=== PATIENT | male | born 1970 | race Caucasian/White ===

== ENCOUNTER 2024-08-12 15:41 | Emergency (ER) | payer OTHER, SELFPAY ==
--- OUTSIDE RECORDS SUMMARY | 2023-12-03 04:38 | XMS_ITS ---
Author Organization [facility] liance Address [address] [place] [address] Care Team Providers Care Radiologic Technologist Mammogram Name Role Phone Dwayne Mcdonald Primary Care Provider Unavailab WilliamShannon Unavailable [phone] RalphTemitope becker Unavailable [phone] REASON FOR VISIT Post Discharge Medication Review Medications Medication SIG (Take, Route, Frequency, Duration) Notes Start Date End Date Status Nicotine Step 1 21 MG/24HR 1 patch to skin Transdermal Once a day Not-Takbeltran g Nicotine Polacrilex 2 MG 1 gum mucous me mbrane Mouth/Throat every 2 hrs as needed for smoking cessation Active Effexor XR 37.5 MG 1 capsule with food Orally Once a day 08/23/2021 Not-Taking Risperidone 4 MG 1 tablet Orally at b ed time Not-Taking traZODone HCl 50 MG 1.5 tablets HS Orall y Once a day 08/23/2021 Not-Taking Atorvastatin Calcium 40 MG 1 tablet Orally Once a day 08/24/2021 Active Melatonin 3 MG 2 tablet at bedtime as needed Orally at bed time 11/13/2022 Active metFORMIN HCl 1000 MG 1 tablet with a me al Orally twice a day Active Banophen 50 MG 1 capsule at bedtime as needed Orally Once a day Not-Taking Acetaminophen 325 MG 2 tablet as needed Orally every 4 hrs PRN 08/24/2021 Not-Takin g carBAMazepine 100 MG 4 tablets Orally ev aditya 12 hours 11/13/2021 Active QUEtiapine Fumarate 400 MG 2 tablets Orally at bed time Active Insulin Lispro 100 UNIT/ML as directed Subcutaneous 3-15 units under the skin 3 times a day with meals. Active clonazePAM 1 MG 1 tablet Orally 3 times a day as needed for anxiety for up to 7 days 12/04/2023 Active Flonase Allergy Relief 50 MCG/ACT 2 sprays in each nostril Nasally Once a day Active Protonix 40 MG 1 tablet 1/2 to 1 ho ur before morning meal Orally Once a day Active Zaleplon 10 MG 1 capsule at bedtime as needed Orally Once a day Active Floranex - 2 tablets Orally onc e a day Active Levothyroxine Sodium 50 MCG 1 tablet in the morning on an empty stomach Orally Once a day Active Insulin Lispro 100 UNIT/ML Inject 3-15 units Subcutaneous nightly Active Encounters Encounter Location Date Provider Diagnosis [address] [place] [address] 12/03/2023 Temitope Ralph Plan Of Treatment No Information Progress Notes * PAUL QUIROS FDOB:[birth year] (53 yo M)Acc No.[id number]:12/03/2023 Patient: PAUL CUI :1970 A ge:53 Y S ex:Male Address:[address] [place] [address], [address], [place] [address] Subjective: * Chief Complaints: * P ost Discharge Medication Review * HPI: M edication Review: Medication Review W hat service was performed? P ost-discharge medication review V isit/Encounter Type M ember/Caregiver not present, chart review only W as the medication list in eCW updated? Y es- new or changed medications added Utilized d/c summary * Medical History: * Surgical History: * Hospitalization/Major Diagno stic Procedure: * Medications: T akingZaleplon 10 MG Capsule 1 capsule at bedtime as needed Orally Once a day Protonix 40 MG Tablet Delayed Release 1 tablet 1/2 to 1 hour before morning meal Orally Once a day Levothyroxine Sodium 50 MCG Tablet 1 tablet in the morning on an empty stomach Orally Once a day Floranex - Tablet 2 tablets Orally once a day Insulin Lispro 100 UNIT/ML Solution Cartridge Inject 3-15 units Subcutaneous nightly Insulin Lispro 100 UNIT/ML Solution Cartridge as directed Subcutaneous 3-15 units under the skin 3 times a day with meals. Flonase Allergy Relief 50 MCG/ACT Suspension 2 sprays in each nostril Nasally Once a day clonazePAM 1 MG Tablet 1 tablet Orally 3 times a day as needed for anxiety for up to 7 days , stop date 12/04/2023arBAMazepine 100 MG Tablet Chewable 4 tablets Orally every 12 hours QUEtiapine Fumarate 400 MG Tablet 2 tablets Orally at bed time Atorvastatin Calcium 40 MG Tablet 1 tablet Orally Once a day metFORMIN HCl 1000 MG Tablet 1 tablet with a meal Orally twice a day Melatonin 3 MG Tablet 2 tablet at bedtime as needed Orally at bed time Nicotine Polacrilex 2 MG Gum 1 gum mucous membrane Mouth/Throat every 2 hrs as needed for smoking cessation Taking Zaleplon 10 MG Capsule 1 capsule at bedtime as needed Orally Once a day Taking Protonix 40 MG Tablet Delayed Release 1 tablet 1/2 to 1 hour before morning meal Orally Once a day Taking Levothyroxine Sodium 50 MCG Tablet 1 tablet in the morning on an empty stomach Orally Once a day Taking Floranex - Tablet 2 tablets Orally once a day Taking Insulin Lispro 100 UNIT/ML Solution Cartridge Inject 3-15 units Subcutaneous nightly Taking Insulin Lispro 100 UNIT/ML Solution Cartridge as directed Subcutaneous 3-15 units under the skin 3 times a day with meals. Taking Flonase Allergy Relief 50 MCG/ACT Suspension 2 sprays in each nostril Nasally Once a day Taking clonazePAM 1 MG Tablet 1 tablet Orally 3 times a day as needed for anxiety for up to 7 days , stop date 12/04/2023Taking carBAMazepine 100 MG Tablet Chewable 4 tablets Orally every 12 hours Taking QUEtiapine Fumarate 400 MG Tablet 2 tablets Orally at bed time Taking Atorvastatin Calcium 40 MG Tablet 1 tablet Orally Once a day Taking metFORMIN HCl 1000 MG Tablet 1 tablet with a meal Orally twice a day Taking Melatonin 3 MG Tablet 2 tablet at bedtime as needed Orally at bed time Taking Nicotine Polacrilex 2 MG Gum 1 gum mucous membrane Mouth/Throat every 2 hrs as needed for smoking cessation Not-TakingAcetaminophen 325 MG Tablet 2 tablet as needed Orally every 4 hrs PRN Banophen 50 MG Capsule 1 capsule at bedtime as needed Orally Once a day Risperidone 4 MG Tablet 1 tablet Orally at bed time Effexor XR 37.5 MG Capsule Extended Release 24 Hour 1 capsule with food Orally Once a day traZODone HCl 50 MG Tablet 1.5 tablets HS Orally Once a day Nicotine Step 1 21 MG/24HR Patch 24 Hour 1 patch to skin Transdermal Once a day Not-Taking Acetaminophen 325 MG Tablet 2 tablet as needed Orally every 4 hrs PRN Not-Taking Banophen 50 MG Capsule 1 capsule at bedtime as needed Orally Once a day Not-Taking Risperidone 4 MG Tablet 1 tablet Orally at bed time Not-Taking Effexor XR 37.5 MG Capsule Extended Release 24 Hour 1 capsule with food Orally Once a day Not-Taking traZODone HCl 50 MG Tablet 1.5 tablets HS Orally Once a day Not-Taking Nicotine Step 1 21 MG/24HR Patch 24 Hour 1 patch to skin Transdermal Once a day Objective: Assessment: Plan: * Treatment: * Procedure Codes: * true * Date: Generated for Evelia rainey/Gonzalo/Jonathan on: 0 08/12/2024 08:01 PM EDT History and Physical Notes * HPI (History of Present Illness) Category Sub-Category Detail Notes Category Not es Medication Review Medication Review What service was performed?: Post-discharge medication review Visit/Encounter Type: Member /Caregiver not present, chart review only Was the medication list in e CW updated?: Yes- new or changed medications added Utilized d/c summary
--- NOTE | ~2024-08-12 | XR_ITS ---
EXAMINATION: XR CHEST CLINICAL INFORMATION: chest pain COMPARISON: None available. TECHNIQUE: 2 views of the chest were obtained. FINDINGS: Heart size is within normal limits. Lungs are clear and well aerated. There is no pleural effusion. Osseous structures are unremarkable. XR/XR chest 2V IMPRESSION: No acute disease Electronically signed by: Avel Heaton MD 08/12/2024 05:07 PM EDT RP
--- NOTE | 2024-08-12 15:49 | ECG_ITS ---
Test Reason : cp Blood Pressure : */* mmHG Vent. Rate : 74 BPM Atrial Rate : 74 BPM P-R Int : 128 ms QRS Dur : 88 ms QT Int : 414 ms P-R-T Axes : 45 197 74 degrees QTcB Int : 459 ms Normal sinus rhythm Right ventricular hypertrophy Lateral infarct , age undetermined Abnormal ECG No previous ECGs available Referred By: Generic ED Physician Electronically Signed By: BELEM OVALLES
[2024-08-12 15:57] VITALS: BP 100/63; BP 110/75; PULSE 72; PULSE 80; RESP 18; TEMP 36.7; O2SAT 100; O2SAT 98; BMI 30.3
--- NOTE | 2024-08-12 15:59 | ED.GENADULT ---
HPI - General Adult General Chief complaint: General Medical Stated complaint: L shoulder pain radiating to chest,dizzy Time Seen by Provider: 08/12/24 15:59 Source: patient, EMS, RN notes reviewed and old records reviewed Mode of arrival: EMS Limitations: no limitations History of Present Illness ED Provider: Alla HPI narrative: Patient is a 53-year-old male with history of TBI, DM, hypothyroidism, HLD, dementia/cognitive impairment presenting to the emergency department from [facility] via EMS with complaint of left-sided chest and shoulder pain since this morning. Also complains of ongoing dizziness since his TBI. Denies shortness of breath or palpitations. Patient is poor historian due to TBI/dementia. MD complaint: chest pain Onset (ago): hour(s) Related Data Allergies Allergy/AdvReac Type Severity Reaction Status Date / Time No Known Drug Allergies Allergy Unknown Verified 08/12/24 15:59 Review of Systems Review of Systems: As per HPI Yes all other systems are reviewed and are negative PMFSH Social History Social History Unable to assess alcohol history related to: Unknown Smoked in Last 30 Days: No Use of substances other than those prescribed or required for medical reasons: Unknown Physical Exam ED Vital Signs: Vital Signs - 24 hr 08/12/24 15:57 08/12/24 18:09 Temperature 98.1 F 98.1 F Pulse Rate 72 83 Respiratory Rate 18 16 Blood Pressure 100/63 106/72 Pulse Oximetry 98 98 Oxygen Delivery Method Room Air Room Air BMI result Body Mass Index 30.3 Medical Decision Making Medical Decision Making [facility] Narrative: Patient is a 53-year-old male with history of TBI, DM, hypothyroidism, HLD, dementia/cognitive impairment presenting to the emergency department from [facility] via EMS with complaint of left-sided chest and shoulder pain since this morning. On exam patient is awake, A+Ox3, VS WNL, afebrile, normal neurological exam without focal deficits, physical exam findings as above. Given reported symptoms and physical exam findings, initial differential includes but is not limited to ACS, musculoskeletal pain, costochondritis, pneumonia. Labs notable for mild anemia not at transfusable level, negative troponin x2. EKG shows normal sinus rhythm. X-ray chest notable for no evidence of pneumonia, pneumothorax. My interpretation is in agreement with the radiologist's interpretation. Patient's sister reporting to RN that he frequently offers physical complaints as attention seeking behavior and she is comfortable with his discharge back to [facility] once he is medically cleared. Differential Diagnosis Differential Diagnoses: The differential diagnosis associated with the presentation includes As per [facility] Admission/Observation Consideration of admission/observation: Escalation of care including admission/observation considered Patient would have been admitted to the hospital had their work up had any findings where hospital admission was appropriate and their clinical presentation warranted hospital admission. Lab Data [facility] Lab Attestation statement: I reviewed the patient's lab results. as per [facility] 08/12/24 16:20 08/12/24 16:20 Labs: Lab Results 08/12/24 08/12/24 Range/Units 16:20 18:17 WBC 7.5 (4.8-10.8) X10*3/uL RBC 3.96 L (4.60-5.80) X10*6/uL Hgb 12.8 L (14.0-18.0) g/dl Hct 36.7 L (42.0-52.0) % MCV 92.7 (80.0-98.0) fL MCH 32.3 (27.0-33.0) pg MCHC 34.9 (31.0-36.0) g/dl RDW 14.4 (11.0-16.0) % Plt Count 213 (160-400) X10*3/uL MPV 9.2 L (9.4-12.4) fL Immature Gran % (Auto) 0.3 (0.0-0.4) % Neut % (Auto) 57.3 (45-73) % Lymph % (Auto) 33.5 (20-40) % Coles % (Auto) 7.8 (2-11) % Eos % (Auto) 0.4 (0-4) % Baso % (Auto) 0.7 (0-2) % Lymph # (Auto) 2.5 (1.2-4.9) X10*3/uL Coles # (Auto) 0.6 (0.1-1.2) X10*3/uL Eos # (Auto) 0.0 (0.0-0.4) X10*3/uL Baso # (Auto) 0.1 (0.0-0.2) X10*3/uL Abs Immat Gran (auto) 0.02 (0.00-0.03) X10*3/uL Absolute Neuts (auto) 4.3 (2.0-8.3) x10*3/uL Absolute Nucleated RBC 0.000 (0.0-0.012) X10*3/uL Nucleated RBC % (auto) 0.0 (0.0-0.2) /100WBC Sodium 138 (135-145) mmol/L Potassium 4.1 (3.3-5.1) mmol/L Chloride 104 (96-108) mmol/L Carbon Dioxide 29 (22-29) mmol/L Anion Gap 9 L (12-20) BUN 15 (9-16) mg/dL Creatinine 0.93 (0.5-1.4) mg/dL Estim Creat Clear Calc 119.1 Estimated GFR > 60 Random Glucose 94 (60-115) mg/dL Calcium 8.4 (8.4-10.2) mg/dL Total Bilirubin 0.3 (0.0-1.0) mg/dL AST 20 (5-37) U/L ALT 20 (0-40) U/L Alkaline Phosphatase 63 (39-117) U/L Troponin I High Sens < 2.7 3.5 (<3.5-35.0) ng/L Total Protein 6.2 L (6.5-8.0) g/dL Albumin 3.6 (3.5-5.0) g/dL Independent Interpretation I performed an independent interpretation of an: EKG (normal sinus rhythm, rate 74 bpm, normal ID interval, slightly prolonged QTc) and Plain X-Ray Interpretation: Chest x-ray is without evidence of pneumonia or pneumothorax Radiology Impression Discussion of test interpretation with radiology: I have reviewed the radiologist's reading. Radiologist Impression: XR/XR chest 2V IMPRESSION: No acute disease Independent Historian Clinical information obtained from an independent historian. History obtained from or confirmed by: Other (sister) External Record Review External record reviewed: Inpatient record, Office record and Outpatient record Discharge Plan Discharge Clinical Impression: Chest pain Patient Disposition: Xfer Psychiatric Hosp Transfer Details: discharge back to [facility] Instructions: Chest Pain (DC) Additional Instructions: You were evaluated in the emergency department today for chest pain. Your evaluation has shown no signs of medical conditions requiring emergent intervention at this time, however we recommend that you follow-up with your primary care physician or your supervisor microwave for further testing as an outpatient. Please schedule an appointment for follow-up with your primary care physician as soon as possible. Return to the emergency department if you experience worsening or uncontrolled chest pain, shortness of breath, lightheadedness, feeling faint, loss of consciousness, nausea, vomiting, or any other concerning symptoms.
[2024-08-12 16:23] LABS: MANUAL DIFF FLAG NO
[2024-08-12 16:25] LABS: Basophils Absolute Auto 0.1 X10*3/uL (0.0-0.2); Basophils Percent Auto 0.7 % (0-2); Eosinophils Percent Auto 0.4 % (0-4); Hematocrit 36.7 % (42.0-52.0); Hemoglobin 12.8 g/dl (14.0-18.0); Imm Gran Abs Auto 0.02 X10*3/uL (0.00-0.03); Imm Gran Pct Auto 0.3 % (0.0-0.4); Lymphocytes Absolute Auto 2.5 X10*3/uL (1.2-4.9); Lymphocytes Percent Auto 33.5 % (20-40); Mean Corpuscular HGB Conc 34.9 g/dl (31.0-36.0); Mean Corpuscular Hemoglobin 32.3 pg (27.0-33.0); Mean Corpuscular Volume 92.7 fL (80.0-98.0); Mean Platelet Volume 9.2 fL (9.4-12.4); Monocytes Absolute Auto 0.6 X10*3/uL (0.1-1.2); Monocytes Percent Auto 7.8 % (2-11); Neutrophils Absolute Auto 4.3 x10*3/uL (2.0-8.3); Neutrophils Percent Auto 57.3 % (45-73); Platelet Count 213 X10*3/uL (160-400); Red Blood Count 3.96 X10*6/uL (4.60-5.80); Red Cell Distribution Width 14.4 % (11.0-16.0); White Blood Count 7.5 X10*3/uL (4.8-10.8)
[2024-08-12 16:40] LABS: Alanine Aminotransferase 20 U/L (0-40); Albumin Level 3.6 g/dL (3.5-5.0); Alkaline Phosphatase 63 U/L (39-117); Anion Gap 9 (12-20); Aspartate Amino Transferase 20 U/L (5-37); Bilirubin Total 0.3 mg/dL (0.0-1.0); Blood Urea Nitrogen 15 mg/dL (9-16); Calcium 8.4 mg/dL (8.4-10.2); Carbon Dioxide 29 mmol/L (22-29); Chloride 104 mmol/L (96-108); Creatinine Clr Calc Pharmacy 119.1; Estimated Glomerular Filt Rate > 60; Glucose Random 94 mg/dL (60-115); Potassium 4.1 mmol/L (3.3-5.1); Sodium 138 mmol/L (135-145); Total Protein 6.2 g/dL (6.5-8.0)
[2024-08-12 16:51] LABS: Troponin-I High Sensitivity < 2.7 ng/L (<3.5-35.0)
[2024-08-12 18:09] VITALS: BP 106/72; PULSE 83; RESP 16; TEMP 36.7; O2SAT 98
--- NOTE | 2024-08-12 18:37 | PC.NURSE ---
patient moved to [facility] - awaiting transport to return to [facility]
[2024-08-12 18:47] LABS: Troponin-I High Sensitivity 3.5 ng/L (<3.5-35.0)
[2024-08-12 19:31] VITALS: BP 118/67; PULSE 68; RESP 15; TEMP 37; O2SAT 99
== END 2024-08-12 20:00 ==
PROVIDERS: Registered Nurse Emergency; Emergency Provider Emergency Medicine
DX: R07.89 Other chest pain (principal); M25.512 Pain in left shoulder; R42 Dizziness and giddiness; Z79.899 Other long term (current) drug therapy
CPT/HCPCS: 36415; 71046; 80053; 84484; 85025; 93005; 99283; 99285

== ENCOUNTER → 2024-08-12 15:49 | Outpatient (BNV) | payer OTHER, SELFPAY | PROVIDERS: Emergency Provider Emergency Medicine; Visit Provider Internal Medicine | DX: I51.7 Cardiomegaly (principal) | CPT/HCPCS: 93010 ==

== ENCOUNTER → 2024-08-12 16:00 | Outpatient (BNV) | payer OTHER, SELFPAY | PROVIDERS: Emergency Provider Emergency Medicine; Visit Provider Radiology Diagnostic Radiology | DX: R07.9 Chest pain, unspecified (principal) | CPT/HCPCS: 71046 ==